=== PATIENT | male | born 2000 | race Caucasian/White ===

== ENCOUNTER 2019-12-29 17:41 | Emergency (ER) | payer OTHER, SELFPAY ==
[2019-12-29 17:48] VITALS: BP 134/96; PULSE 70; RESP 16; TEMP 36.8; O2SAT 97; BMI 23.5
[2019-12-29] MEDS: TET,DIPH,PERTUSS(ACELL),VAC/PF 0.5 ML SYRINGE IM (17:55)
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
[2019-12-29] MEDS: BACITRACIN OINT 0.9 GM PCKT 3 APPLIC TOP (19:35)
[2019-12-29] MEDS: LIDO 1%/SOD BICARB 8.4% (10ML) 10 ML SYRINGE INJ (19:35)
[2019-12-29 19:38] VITALS: BP 122/78; PULSE 78; RESP 12; O2SAT 100
== END 2019-12-29 19:40 | disposition home or self-care (01) ==
PROVIDERS: Emergency Provider Emergency Medicine; PCP Pediatrics
DX: S01.81XA Laceration without foreign body of other part of head, initial encounter (principal); V19.9XXA Pedal cyclist (driver) (passenger) injured in unspecified traffic accident, initial encounter; Z23 Encounter for immunization
CPT/HCPCS: 12013; 90471; 99283; 90715

== ENCOUNTER 2024-12-26 06:46 | Emergency (ER) | payer SELFPAY ==
[2024-12-26] VITALS (13 sets, daily range): BP systolic 109–149; BP diastolic 64–90; PULSE 66–81; RESP 18; TEMP 36.6–36.8; O2SAT 96–100; BMI 22.8
[2024-12-26 07:05] LABS: Add Manual Diff / Slide Review NO; Basophils Absolute Auto 100 /uL (0-100); Basophils Percent Auto 0.7 % (0-2); Eosinophils Absolute Auto 100 /uL (0-450); Eosinophils Percent Auto 0.7 % (2-4); Hematocrit 42.7 % (41-53); Hemoglobin 15.1 g/dL (13.5-17.5); Lymphocytes Absolute Auto 3500 /uL (1100-4500); Lymphocytes Percent Auto 35.9 % (25-40); Mean Corpuscular HGB Conc 35.4 % (30-36); Mean Corpuscular Hemoglobin 30.6 PG (26-34); Mean Corpuscular Volume 86.5 fL (80-100); Monocytes Absolute Auto 700 /uL (0-900); Monocytes Percent Auto 7.7 % (3-14); Neutrophils Absolute Auto 5400 /uL (1500-7000); Platelet Count 327 X10^3/uL (150-400); Red Blood Cell Count 4.94 X10^6/uL (4.5-5.9); Red Cell Distribution Width 13.4 % (11.6-14.8); White Blood Cell Count 9.8 X10^3/uL (4.5-11.0)
[2024-12-26 07:16] LABS: Alanine Aminotransferase 24 IU/L (<50); Albumin 4.8 g/dL (3.5-5.0); Albumin Globulin Ratio 1.5 (1.0-2.8); Alkaline Phosphatase 71 U/L (38-126); Aspartate Aminotransferase 32 IU/L (17-59); BUN Creatinine Ratio 22.6 (6-22); Bilirubin Total 0.8 mg/dL (0.2-1.3); Blood Urea Nitrogen 21 mg/dL (9-20); Calcium 9.4 mg/dL (8.4-10.2); Carbon Dioxide 28 mmol/L (22-32); Chloride 100 mmol/L (98-107); Estimated Glomerular Filt Rate > 60 mL/min (>60); Globulin 3.1 g/dL (1.7-4.1); Glucose 121 mg/dL (70-99); HEMOLYSIS < 15 (0-50); Lipase 195 U/L (23-300); Potassium 3.7 mmol/L (3.4-5.1); Sodium 137 mmol/L (137-145); Total Protein 7.9 g/dL (6.3-8.2)
--- NOTE | 2024-12-26 07:24 | ED_ITS ---
HPI - Abdominal Pain General Chief Complaint: Abdominal Pain Stated Complaint: possible food poisoning not sure Time Seen by Provider: 12/26/24 07:08 Source: patient Mode of arrival: Ambulatory History of Present Illness HPI narrative: Significant PMHx include: ankylosing spondylitis, depression Vishal, a patient with a history of ankylosing spondylitis and previous appendectomy, presented with complaints of abdominal pain, vomiting, and diarrhea that began on Tuesday night after consuming frozen mini tacos from [employer]. The patient reported waking up at 2 AM on Tuesday with severe nausea and vomiting, which continued throughout the day. On Tuesday, the symptoms slightly improved, but the patient still felt unwell and appeared visibly ill to others. The abdominal pain worsened significantly on Tuesday morning around 4 AM, localizing from the rib cage to the belly button area. The patient described experiencing fever, chills, and sweats throughout the illness. Diarrhea has been persistent since the onset of symptoms. The patient denied any blood in the stool or vomit. A chronic cough was reported, unrelated to the current illness. The patient takes Enbrel weekly for ankylosing spondylitis and has no other regular medications. Social history includes vaping nicotine and smoking cannabis joints, with the last use of cannabis being the night before the visit. The patient denied alcohol consumption. In the 24 hours prior to the visit, the patient reported vomiting 3-4 times and having diarrhea 4-5 times. The current abdominal pain was rated as 5 out of 10 in severity. Related Data Home Medications Medication Instructions Recorded Confirmed etanercept 50 mg/mL (1 mL) SUBCUT 28 days #4 mL 02/27/18 08/28/18 subcutaneous syringe Previous Rx's Medication Instructions Recorded citalopram 20 mg tablet 20 mg PO DAILY #30 tabs 08/28/18 ondansetron 4 mg disintegrating 4 mg PO Q8H PRN nausea and 12/26/24 tablet vomiting #12 tabs Allergies Allergy/AdvReac Type Severity Reaction Status Date / Time No Known Drug Allergies Allergy Unverified 08/28/18 13:29 Review of Systems Review of Systems Narrative: All systems reviewed and unremarkable except as noted in the HPI Patient History Medical History (Updated 12/26/24 @ 09:19 by Jasmeet Arriola MD) Major depressive disorder, recurrent episode, moderate Ankylosing spondylitis Hyperactivity (behavior) Major depression, recurrent, full remission Social History Smoking Status: Current every day smoker Smoking Status: Current every day smoker Exam Narrative Exam Narrative: VS as noted above Focused physical exam as follows: General: Well developed, well nourished, no acute distress HEENT: pink palpebral conjunctiva, anicteric sclera, KATHARINA, dry mucous membranes, no JVD, no cervical lymphadenopathy Lungs: no respiratory distress, clear to auscultation without wheezes or crackles; equal breath sounds Heart: normal rate, regular rhythm, no appreciable murmurs Abdomen: soft, mild epigastric and periumbilical tenderness, no rebound or rigidity Musculoskeletal: no gross deformities with full ROM in all extremities, no pedal edema Skin: pink, warm; no rashes Neuro: ?AAOx3, GCS 15, nonfocal exam Psyche: no SI/HI, normal affect Initial Vital Signs Initial Vital Signs: Vital Signs Pulse Rate 81 12/26/24 06:52 Pulse Oximetry 97 12/26/24 06:52 Course Course Course Narrative: Initial VS noted above. ? PMHx, PSHx, Medication list, social history reviewed as noted above. Differential diagnosis considered include (but not limited to) the following: gastroenteritis, pancreatitis, cholelithiasis/cystitis, diverticulitis, IBS, colitis, UTI, pyelo, ureteral calculus, dehydration, electrolyte imbalance, liver or kidney failure Pt interviewed and examined. IVF bolus, Zofran ordered while awaiting studies. Work up initiated to include stool studies. Labs reviewed - dehydration noted. Orders Ordered: ED Orders 12/26/24 06:58 Complete Blood Count AUTO DIFF Stat Comprehensive Metabolic Panel Stat Lipase Stat 12/26/24 07:22 GI Panel (Film Array) Stat Stool Culture Stat 12/26/24 07:30 CT abdomen pelvis w con Stat 12/26/24 08:49 Urinalysis and Microscopic Stat Ondansetron HCl (Ondansetron 4 Mg/2 Ml Inj) 4 mg IV NOW PRN PRN Reason: Nausea And Vomiting Ondansetron HCl (Ondansetron 4 Mg Odt) 4 mg PO NOW PRN PRN Reason: Nausea And Vomiting Discontinued Medications Sodium Chloride (Normal Saline 0.9%) 1,000 mls @ 1,000 mls/hr IV BOLUS ONE Stop: 12/26/24 08:21 Last Admin: 12/26/24 07:37 Dose: 1,000 mls/hr Vital Signs Vital signs: Vital Signs - 8 hr 12/26/24 06:52 12/26/24 06:53 12/26/24 06:53 Temperature Pulse Rate 81 81 Respiratory Rate Blood Pressure 149/90 H Pulse Oximetry 97 98 Oxygen Delivery Method 12/26/24 06:55 12/26/24 07:00 12/26/24 07:01 Temperature 98.2 F Pulse Rate 81 76 69 Respiratory Rate 18 Blood Pressure 149/90 H Pulse Oximetry 98 97 99 Oxygen Delivery Method Room Air 12/26/24 07:01 12/26/24 07:30 12/26/24 07:30 Temperature Pulse Rate 68 Respiratory Rate Blood Pressure 141/75 H 132/80 Pulse Oximetry 98 Oxygen Delivery Method MDM - Abdominal Pain Lab Data Attestation: I reviewed the patient's lab results. 12/26/24 06:58 12/26/24 06:58 Labs: Lab Results 12/26/24 12/26/24 Range/Units 06:58 08:49 WBC 9.8 (4.5-11.0) X10^3/uL RBC 4.94 (4.5-5.9) X10^6/uL Hgb 15.1 (13.5-17.5) g/dL Hct 42.7 (41-53) % MCV 86.5 (80-100) fL MCH 30.6 (26-34) PG MCHC 35.4 (30-36) % RDW 13.4 (11.6-14.8) % Plt Count 327 (150-400) X10^3/uL Neut % (Auto) 55.0 (50-75) % Lymph % (Auto) 35.9 (25-40) % [place] % (Auto) 7.7 (3-14) % Eos % (Auto) 0.7 L (2-4) % Baso % (Auto) 0.7 (0-2) % Neut # (Auto) 5400 (2581-6093) /uL Lymph # (Auto) 3500 (5244-8434) /uL [place] # (Auto) 700 (0-900) /uL Eos # (Auto) 100 (0-450) /uL Baso # (Auto) 100 (0-100) /uL Sodium 137 (137-145) mmol/L Potassium 3.7 (3.4-5.1) mmol/L Chloride 100 (98-107) mmol/L Carbon Dioxide 28 (22-32) mmol/L BUN 21 H (9-20) mg/dL Creatinine 0.93 (0.66-1.25) mg/dL Estimated GFR > 60 (>60) mL/min BUN/Creatinine Ratio 22.6 H (6-22) Glucose 121 H (70-99) mg/dL Calcium 9.4 (8.4-10.2) mg/dL Total Bilirubin 0.8 (0.2-1.3) mg/dL AST 32 (17-59) IU/L ALT 24 (<50) IU/L Alkaline Phosphatase 71 (38-126) U/L Total Protein 7.9 (6.3-8.2) g/dL Albumin 4.8 (3.5-5.0) g/dL Globulin 3.1 (1.7-4.1) g/dL Albumin/Globulin Ratio 1.5 (1.0-2.8) Lipase 195 (23-300) U/L Urine Color Yellow Urine Appearance Clear Urine pH 6.5 (4.5-8.0) Ur Specific [place] <=1.005 (1.000-1.035) Urine Protein Negative (Negative) Urine Glucose (UA) Negative (Negative) g/dL Urine Ketones Negative (NEGATIVE) Urine Occult Blood Negative (Negative) Urine Nitrate Negative (Negative) Urine Bilirubin Negative (NEGATIVE) Urine Urobilinogen 0.2 (0.2) E.U./dL Ur Leukocyte Esterase Negative (NEGATIVE) Urine RBC None seen (0-5/HPF) Urine WBC None seen (0-5/HPF) Ur Squamous Epith Cells None seen (0-5/HPF) Urine Bacteria None seen (None) Ur Culture Indicated? Cult not indicated Vol Urine Centrifuged 10ml (spun) Imaging Data CT abd/pelvis: Attestation: I personally reviewed and interpreted this imaging study as follows: My Impression: Same as official report Radiologist's Impression: IMPRESSION: 1. No acute findings within the abdomen or pelvis. 2. Bilateral sacroiliitis. MDM Narrative Medical decision making narrative: MDM HPI, PMHx, PSHx, Medication list, Allergies, ROS and Focused exam were reviewed above. ?Differential diagnosis as noted above. ?Social determinants affecting care considered (as listed). ?All of these were taken into consideration warranting above listed work up. ?Consultations as deemed necessary were documented above (if listed). Labs (if ordered and noted above) were independently reviewed by me. Imaging studies (if ordered and noted above) were independently reviewed by me EKG (if noted above) was independently reviewed by me External documents (if reviewed) are documented above [Independent clinician discussions (if done) as documented above.] Discharge Plan Departure Patient Disposition: Home Clinical Impression: Gastroenteritis, Acute dehydration Abdominal pain Qualifiers: Abdominal location: generalized Qualified Code(s): R10.84 - Generalized abdominal pain Instructions: DI for Dehydration -- Adult, DI for Viral Gastroenteritis -- Adult, DI for Abdominal Pain-Adult Activity Restrictions/Additional Instructions: Work up today was generally reassuring other than dehydration. You were unable to provide a stool sample today. You likely have a viral gastroenteritis as the cause of your symptoms. These should resolve in the next few days. Drink plenty of fluids. Eat at regular intervals. Use Zofran for nausea. Return to the ER if with worsening abdominal pain, persistent nausea, vomiting or blood in stool or vomitus. Follow up with your regular doctor as needed. Prescriptions: New ondansetron 4 mg tablet,disintegrating 4 mg PO Q8H PRN (Reason: nausea and vomiting) Qty: 12 0RF No Action etanercept 50 mg/mL (0.98 mL) syringe SUBCUT 28 Days Qty: 4 Patient Comments: 25mg IM weekly citalopram 20 mg tablet 20 mg PO DAILY Qty: 30 1RF Rx Instructions: Start with 1/2 tab each night, ok to increase to 1 tab after 2 weeks Referrals: Wei Martin MD [Primary Care Provider] - Stand Alone Forms: Patient Portal/API/Survey
--- NOTE | 2024-12-26 07:30 | DI.CT.S_ITS ---
PROCEDURE: CT ABDOMEN PELVIS W CON INDICATIONS: generalized abdominal pain TECHNIQUE: After the administration of intravenous contrast, axial sections acquired from the lung bases to the pubic symphysis. Coronal and sagittal reformats were performed. For radiation dose reduction, the following was used: automated exposure control, adjustment of mA and/or kV according to patient size. COMPARISON: [facility] [place], CT, ABDOMEN/PELVIS WITH CONTRAST, 11/10/2015, 23:46. FINDINGS: Image quality: Diagnostic. Lower Chest: No significant findings. ABDOMEN: Liver: No solid mass. Gallbladder: No radiopaque gallstones or wall thickening. Biliary ducts: No biliary dilation. Pancreas: No ductal dilation. Spleen: Size is within normal limits. Adrenal Glands: No adrenal nodules. Kidneys and Ureters: No hydronephrosis. No solid mass. No complex renal cystic lesion which requires follow up. Stomach and Bowel: Normal colonic caliber, without significant wall thickening. Surgical clips near the cecum, likely prior appendectomy. Peritoneum: No abnormal intraperitoneal fluid. No free air. Ventral Wall: No significant ventral hernia. Abdominal Nodes: No retroperitoneal or mesenteric adenopathy by size criteria. Vessels: Aorta and inferior vena cava are normal in size. PELVIS: Pelvic Organs: Unremarkable. Bladder: No bladder wall thickening, accounting for underdistention. Pelvic Nodes: No enlarged lymph nodes. Miscellaneous: No inguinal hernias are seen. Bones: No aggressive osseous abnormality. Bilateral sacroiliitis. IMPRESSION: 1. No acute findings within the abdomen or pelvis. 2. Bilateral sacroiliitis. Dictated by: Anil Herron M.D. on 12/26/2024 at 8:44 Approved by: Anil Herron M.D. on 12/26/2024 at 8:48
[2024-12-26] MEDS: SODIUM CHLORIDE 0.9% 1,000 ML 1000 ML IV (07:37)
[2024-12-26 09:04] LABS: Appearance Urine UA CLEAR; Bilirubin Urine UA NEGATIVE (NEGATIVE); Color Urine UA YELLOW; Glucose Urine UA NEGATIVE (Negative); Ketones Urine UA NEGATIVE (NEGATIVE); Leukocyte Esterase Urine UA NEGATIVE (NEGATIVE); Nitrite Urine UA NEGATIVE (Negative); Occult Blood Urine UA NEGATIVE (Negative); Protein Urine UA NEGATIVE (Negative); Specific Gravity Urine UA <=1.005 (1.000-1.035); Urobilinogen Urine UA 0.2 E.U./dL (0.2); pH Urine UA 6.5 (4.5-8.0)
[2024-12-26 09:05] LABS: Urine Volume 10mL (spun)
[2024-12-26 09:10] LABS: Bacteria Urine None Seen; Culture Indicated Urine Cult Not Indicated; RBC Urine None Seen (0-5/HPF); Squamous Epithelial Cell Urine None Seen (0-5/HPF); WBC Urine None Seen (0-5/HPF)
--- NOTE | 2024-12-26 10:10 | PC.NURSE ---
Passed PO challenge with water and saltines.
== END 2024-12-26 10:11 | disposition home or self-care (01) ==
PROVIDERS: Family Medicine; Emergency Provider Emergency Medicine; PCP Pediatrics
DX: K52.9 Noninfective gastroenteritis and colitis, unspecified (principal); R10.84 Generalized abdominal pain; E86.0 Dehydration
CPT/HCPCS: 36415; 74177; 80053; 81001; 83690; 85025; 96360; 96361; 99284